=== PATIENT | female | born 1955 | race Two or more races ===

== ENCOUNTER 2017-10-03 09:32 | Outpatient (CLI) | payer OTHER | END 2017-10-03 09:37 | disposition home or self-care (01) | LOC: RX STUDY 09:32 | DX: R13.12 Dysphagia, oropharyngeal phase (principal) ==

== ENCOUNTER 2023-01-03 07:44 | Inpatient (IN) | payer OTHER ==
[~2023-01-03] VITALS: Ht 152.4 cm; Wt 100.7 kg
[2023-01-03] MEDS ORDERED: TOPROL XL100 M1 PO (08:55)
[2023-01-03] MEDS ORDERED: HYDRALAZINE HCL50 MG PO (08:56)
[2023-01-03] MEDS ORDERED: ALDACTONE25 MG PO (08:56)
[2023-01-03] MEDS ORDERED: LASIX20 MG PO (08:56)
[2023-01-03] MEDS ORDERED: GLUMETZA500 MG PO (08:57)
[2023-01-03] MEDS ORDERED: GLIPIZIDE XL10 MG PO (08:57)
[2023-01-03] MEDS ORDERED: MILK PO (08:58)
[2023-01-03] MEDS ORDERED: COZAAR100 MG PO (08:58)
[2023-01-03] MEDS ORDERED: GABAP PO (08:58)
[2023-01-03 09:27] LABS: CALCIUM 9.5 mg/dL (8.5-10.1); CREATININE SERUM 0.82 mg/dL (0.55-1.02); GFR 69.53; POTASSIUM 4.57 mEq/L (3.5-5.1)
[2023-01-03 09:32] LABS: INR 1.03; PARTIAL THROMBOPLASTIN TIME 20.5 SECONDS (22.0-34.0); PROTHROMBIN TIME 10.8 SECONDS (9.0-11.5)
[2023-01-25 12:07] LABS: HEMATOCRIT 35.9 % (36.0-45.00); HEMOGLOBIN 11.9 g/dL (12.0-15.00); MEAN CELL VOLUME 85.6 fL (80.00-100.00); MEAN CORPUSCULAR HEMOGLOBIN 28.5 pg (27.00-32.0); MEAN CORPUSCULAR HGB CONC 33.2 g/dl (32.0-36.0); PLATELET COUNT 130 K/uL (150-450); RED BLOOD COUNT 4.19 M/uL (4.00-6.00); RED CELL DISTRIBUTION WIDTH 15.1 % (11.5-14.5)
[2023-01-28] MEDS ORDERED: ATORVASTATIN CA20 MG (09:05)
[2023-01-28] MEDS ORDERED: FAMOTIDINE40 MG (09:05)
[2023-01-28] MEDS ORDERED: GABAPENTIN800 M1 (09:05)
[2023-01-28] MEDS ORDERED: SERTRALINE HCL100 MG (09:06)
[2023-01-28] MEDS ORDERED: HYDRALAZINE HCL25 MG (09:06)
[2023-01-28] MEDS ORDERED: RALOXIFENE HCL60 MG (09:06)
[2023-01-28 11:39] LABS: HEMATOCRIT 34.8 % (36.0-45.00); HEMOGLOBIN 11.8 g/dL (12.0-15.00); RED BLOOD COUNT 4.11 M/uL (4.00-6.00)
[2023-01-29 06:45] LABS: HEMATOCRIT 30.6 % (36.0-45.00); HEMOGLOBIN 10.3 g/dL (12.0-15.00); MEAN CELL VOLUME 84.5 fL (80.00-100.00); MEAN CORPUSCULAR HEMOGLOBIN 28.5 pg (27.00-32.0); MEAN CORPUSCULAR HGB CONC 33.7 g/dl (32.0-36.0); RED BLOOD COUNT 3.62 M/uL (4.00-6.00); RED CELL DISTRIBUTION WIDTH 15.2 % (11.5-14.5)
[2023-01-29 06:52] LABS: PLATELET COUNT 128 K/uL (150-450)
[2023-01-29 07:02] LABS: ALBUMIN 3.3 gm/dL (3.4-5.0); BILIRUBIN TOTAL 0.65 mg/dL (0.3-1.2); CALCIUM 8.7 mg/dL (8.5-10.1); CREATININE SERUM 0.98 mg/dL (0.55-1.02); GFR 56.61; GLOBULINA 3.3 G/DL (2.4-3.5); POTASSIUM 4.07 mEq/L (3.5-5.1); TOTAL PROTEIN 6.6 gm/dL (6.4-8.2)
[2023-01-30 07:37] LABS: HEMATOCRIT 31.3 % (36.0-45.00); HEMOGLOBIN 10.6 g/dL (12.0-15.00); MEAN CELL VOLUME 83.8 fL (80.00-100.00); MEAN CORPUSCULAR HEMOGLOBIN 28.5 pg (27.00-32.0); PLATELET COUNT 134 K/uL (150-450); RED BLOOD COUNT 3.74 M/uL (4.00-6.00); RED CELL DISTRIBUTION WIDTH 15.4 % (11.5-14.5)
[2023-01-30] MEDS ORDERED: XARELTO10 MG PO (07:42)
[2023-01-30] MEDS ORDERED: BACTRIM DS TAB1 EACH PO (07:42)
[2023-01-30] MEDS ORDERED: INTEGRA PLUS C1 EACH PO (07:42)
[2023-01-30] MEDS ORDERED: OXYC1TAB9 PO (07:42)
== END 2023-01-30 14:10 | DRG 470 ==
LOC: SURH 01-07 07:45 → O/R 01-28 07:34 → SURH 01-28 07:34
PROVIDERS: Internal Medicine; ADMIT Orthopaedic Surgery Sports Medicine; ATTEND Orthopaedic Surgery Sports Medicine
PROC: 3E0F7SF Introduction of Other Gas into Respiratory Tract, Via Natural or Artificial Opening (ICD-10-PCS; 2023-01-28)
PROC: 0SRD0J9 Replacement of Left Knee Joint with Synthetic Substitute, Cemented, Open Approach (ICD-10-PCS; principal; 2023-01-28 10:30)
DX: M17.12 Unilateral primary osteoarthritis, left knee (principal); D62 Acute posthemorrhagic anemia; E11.65 Type 2 diabetes mellitus with hyperglycemia; I10 Essential (primary) hypertension; E03.9 Hypothyroidism, unspecified; G47.33 Obstructive sleep apnea (adult) (pediatric); Z79.84 Long term (current) use of oral hypoglycemic drugs

== ENCOUNTER 2024-07-31 08:00 | Outpatient (CLI) | payer OTHER ==
[~2024-07-31] VITALS: Wt 5.0 kg
[~2024-07-31 08:00] MED LIST: ALDACTONE25 MG PO; ATORVASTATIN CA20 MG; BACTRIM DS TAB1 EACH PO; COZAAR100 MG PO; FAMOTIDINE40 MG; GABAP PO; GABAPENTIN800 M1; GLIPIZIDE XL10 MG PO; GLUMETZA500 MG PO; HYDRALAZINE HCL25 MG; HYDRALAZINE HCL50 MG PO; INTEGRA PLUS C1 EACH PO; LASIX20 MG PO; MILK PO; OXYC1TAB9 PO; RALOXIFENE HCL60 MG; SERTRALINE HCL100 MG; TOPROL XL100 M1 PO; XARELTO10 MG PO
[2024-07-31] MEDS ORDERED: LEVO-T50 MCG PO (09:31)
[2024-07-31] MEDS ORDERED: AMOXICILLIN500 MG PO (09:31)
[2024-07-31 10:14] LABS: RH NEGATIVE
== END 2024-07-31 08:01 | disposition home or self-care (01) ==
LOC: EKG 08:00 → EDSTATUS 08-10 09:00 → SURH 08-10 09:00
PROVIDERS: ATTEND Orthopaedic Surgery Sports Medicine
DX: M17.11 Unilateral primary osteoarthritis, right knee (principal); I10 Essential (primary) hypertension